=== PATIENT | female | born 1980 | race African-American/Black ===

== ENCOUNTER 2021-05-04 17:58 | Emergency (ER) | payer OTHER ==
[~2021-05-04 17:58] MED LIST: BACTRIM DS TAB1 EACH PO; CLEOCIN300 MG PO; KEFLEX500 MG PO; LEVEMIR VI100 UNITS/ SQ
[2021-05-04 19:33] LABS: CORONAVIRUS 2019 SARS-COV-2 NEGATIVE (NEGATIVE); INFLUENZA A NAA NEGATIVE (NEGATIVE)
[2021-05-04 23:34] LABS: BASOPHIL 0.6 % (0-2); EOSINOPHIL 0.8 % (0-5); HCT 31.3 % (37.0-47.0); LYMPHOCYTE 10.6 % (15-48); MCH 27.5 pg (25.0-31.0); MCHC 31.9 g/dL (32.0-36.0); MONOCYTE 7.8 % (0-12); MPV 11.1 fL (6.0-9.5); NEUTROPHIL 79.7 % (41-80); NRBC 0; PLT 216 K/uL (150-400); RBC 3.64 M/uL (4.20-5.40); RDW 13.1 % (11.5-14.0); WBC 6.5 K/uL (4.0-10.5)
[2021-05-04 23:58] LABS: BUN/CREAT RATIO (CALC) 17.4 RATIO; CREATININE 0.92 mg/dL (0.51-0.95)
[2021-05-05] MEDS ORDERED: AUGMENTIN 875-1 EACH PO (04:06)
[2021-05-05] MEDS ORDERED: AZITHROMYCIN250 MG PO (04:06)
[2021-05-05] MEDS ORDERED: TESSALON PERLE100 MG PO (04:07)
== END 2021-05-05 04:10 | disposition home or self-care (01) ==
LOC: FER 17:58
PROVIDERS: Emergency Medicine; Internal Medicine
DX: J18.9 Pneumonia, unspecified organism (principal); I10 Essential (primary) hypertension; E11.9 Type 2 diabetes mellitus without complications; Z20.822 Contact with and (suspected) exposure to COVID-19
CPT/HCPCS: 36415; 71275; 80048; 84145; 85025; 96372; J0696; J2930; J3490; Q9967; U0002

== ENCOUNTER 2022-02-04 14:01 | Emergency (ER) | payer OTHER ==
[~2022-02-04 14:01] MED LIST changes: +AUGMENTIN 875-1 EACH PO; +AZITHROMYCIN250 MG PO; +TESSALON PERLE100 MG PO
[2022-02-04 15:36] LABS: BASOPHIL 0.6 % (0-2); EOSINOPHIL 1.2 % (0-5); HCT 31.5 % (37.0-47.0); HGB 10.4 g/dl (12.5-16.0); MCV 84.9 fL (78.0-100.0); MONOCYTE 4.8 % (0-12); MPV 10.2 fL (6.0-9.5); NEUTROPHIL 67.2 % (41-80); NRBC 0; PLT 291 K/uL (150-400); RBC 3.71 M/uL (4.20-5.40); RDW 12.6 % (11.5-14.0); WBC 8.1 K/uL (4.0-10.5)
[2022-02-04 15:53] LABS: BUN/CREAT RATIO (CALC) 16.9 RATIO; CREATININE 1.18 mg/dL (0.51-0.95); POTASSIUM 4.2 mmol/L (3.5-5.1)
== END 2022-02-04 16:43 | disposition home or self-care (01) ==
LOC: FER 14:01
PROVIDERS: Physician Assistant
DX: I10 Essential (primary) hypertension (principal); E11.9 Type 2 diabetes mellitus without complications; Z79.84 Long term (current) use of oral hypoglycemic drugs; Z79.899 Other long term (current) drug therapy; Z28.310 Unvaccinated for COVID-19
CPT/HCPCS: 36415; 80048; 85025; 99283